=== PATIENT | female | born 2000 | race Hispanic/Latino ===

== ENCOUNTER 2021-05-13 18:19 | Inpatient (IN) | payer OTHER ==
[2021-05-13] VITALS (19 sets, daily range): BP systolic 106–148; BP diastolic 63–95
[~2021-05-13] VITALS: Ht 154.9 cm; Wt 66.6 kg
[2021-05-13] MEDS ORDERED: IRON240T PO (18:43)
[2021-05-13] MEDS ORDERED: PRENTAB9 PO (18:45)
[2021-05-13] MEDS ORDERED: HOME MED LIST COMPLETE! XX SCH (18:45)
[2021-05-13] MEDS ORDERED: TUMS500C PO (18:45)
[2021-05-13] MEDS ORDERED: PENICILLIN G POTASSIUM IV 5 MU in D5W MINI-BAG PLUS 100 ML IV STA (20:04)
[2021-05-13] MEDS ORDERED: METHYLERGONOVINE MALEATE 0.2 MG/ML VIAL (J2210) IM PRN (20:05)
[2021-05-13] MEDS ORDERED: LIDOCAINE 1% MDV 20ML VIAL INFIL PRN (20:05)
[2021-05-13] MEDS ORDERED: TRANEXAMIC ACID INJection 1,000 MG in NS 100 ML IV PRN (20:05)
[2021-05-13] MEDS ORDERED: OXYTOCIN DRIP 30 UNITS in IV 1 EA IV PRN ×4 (20:05)
[2021-05-13] MEDS ORDERED: CARBOPROST TROMETHAMINE 250 MCG/ML AMP IM PRN (20:05)
[2021-05-13 20:47] LABS: HEMATOCRIT 36.7 % (36.0-47.0); HEMOGLOBIN 12.2 g/dl (12.0-15.5); MEAN CORPUSCULAR HEMOGLOBIN 27.7 pg (27.0-33.0); MEAN CORPUSCULAR HGB CONC 33.2 g/dl (32.0-36.5); MEAN CORPUSCULAR VOLUME 83.2 fl (80.0-96.0); PLATELET COUNT, AUTOMATED 278 10^3/uL (150-450); RED BLOOD COUNT 4.41 10^6/uL (4.00-5.40); WHITE BLOOD COUNT 10.1 10^3/uL (4.0-10.0)
[2021-05-13] MEDS ORDERED: ONDANSETRON 4MG/2ML VIAL IV PRN ×2 (20:55→22:50)
[2021-05-13] MEDS: LR 1,000 ML IV SCH ×2 (20:56→23:20)
[2021-05-13] MEDS ORDERED: CALCIUM CARBONATE 500 MG CHEW U/D PO PRN (22:40)
[2021-05-13] MEDS ORDERED: FENTANYL 2MCG/ML ROPIVACAINE 0.2% IN 0.9% NACL 100ML IVBAG As Ordered ONE (22:48)
[2021-05-13] MEDS ORDERED: diphenhydrAMINE 50MG/ML VIAL (J1200) IV PRN (22:50)
[2021-05-13] MEDS ORDERED: LACTATED RINGER'S 1000 ML IV PRN (22:50)
[2021-05-13] MEDS ORDERED: FENTANYL/ROPIVACAINE/NACL BAG 100 ML EPIDURAL SCH (22:50)
[2021-05-13] MEDS ORDERED: EPIDURAL COMMENT XX SCH (22:50)
[2021-05-13] MEDS ORDERED: NALOXONE INJ 0.4MG/1ML VIAL (J2310 PER 1MG) IV PRN (22:50)
[2021-05-13] MEDS ORDERED: EPIDURAL/PCA KEYS XX PRN (22:50)
[2021-05-13] MEDS ORDERED: ePHEDrine SULFATE 25 MG/5 ML(5MG/ML) SYRINGE IV PRN (22:50)
[2021-05-13] MEDS ORDERED: REFRIGERATOR IV KEYS XX PRN (22:50)
[2021-05-14] VITALS (24 sets, daily range): BP systolic 94–139; BP diastolic 50–79
[2021-05-14] MEDS: PENICILLIN G POTASSIUM IV 2.5 MU in IV 1 EA IV SCH ×2 (01:44→05:14)
[2021-05-14] MEDS: LR 1,000 ML IV SCH (04:00)
[2021-05-14] MEDS ORDERED: IBUPROFEN 600MG TAB PO PRN (06:30)
[2021-05-14] MEDS ORDERED: ACETAMINOPHEN TAB 650MG DOSE (2X325MG) PO PRN (06:30)
[2021-05-14] MEDS ORDERED: DIBUCAINE 1% OINTMENT 30GM TOP PRN (06:30)
[2021-05-14] MEDS ORDERED: MEASLES,MUMPS,RUBELLA VACCINE INJ (MMR-II) (90707) SC SCH (06:30)
[2021-05-14] MEDS ORDERED: METHYLERGONOVINE MALEATE 0.2 MG TAB PO PRN (06:30)
[2021-05-14] MEDS ORDERED: RHOGAM 300 MCG (1500 IU) INJ (J2790) IM SCH (06:30)
[2021-05-14] MEDS ORDERED: DOCUSATE SODIUM 100MG CAPSULE PO PRN (06:30)
[2021-05-14] MEDS ORDERED: PRENATAL VITAMINS CHEWABLE TABLET PO SCH (09:00)
[2021-05-14] MEDS: PRENATAL VITAMINS CHEWABLE TABLET PO SCH (10:31)
[2021-05-14] MEDS: ACETAMINOPHEN 500 MG TAB PO PRN ×2 (10:32→21:22)
[2021-05-14] MEDS: IBUPROFEN 800 MG TAB PO PRN (17:05)
[2021-05-15] MEDS: IBUPROFEN 800 MG TAB PO PRN (01:00)
[2021-05-15 05:54] VITALS: BP 127/58
[2021-05-15] MEDS: PRENATAL VITAMINS CHEWABLE TABLET PO SCH (08:37)
[2021-05-15] MEDS ORDERED: ACET-683 PO (09:00)
[2021-05-15] MEDS ORDERED: IBUP80TA PO (09:00)
== END 2021-05-15 14:30 | disposition home or self-care (01) | DRG 807 ==
LOC: M LDO 18:19 → M LDI 20:13 → M OBS 05-14 08:23
PROVIDERS: ADMIT Obstetrics & Gynecology; ATTEND Obstetrics & Gynecology
PROC: 10E0XZZ Delivery of Products of Conception, External Approach (ICD-10-PCS; principal; 2021-05-14)
PROC: 0KQM0ZZ Repair Perineum Muscle, Open Approach (ICD-10-PCS; 2021-05-14)
DX: O24.420 Gestational diabetes mellitus in childbirth, diet controlled (principal); Z37.0 Single live birth; Z3A.38 38 weeks gestation of pregnancy; O70.1 Second degree perineal laceration during delivery

== ENCOUNTER 2022-04-22 23:32 | Emergency (ER) | payer OTHER ==
[~2022-04-22] VITALS: Ht 154.9 cm; Wt 61.6 kg
[~2022-04-22 23:32] MED LIST: ACET-683 PO; IBUP80TA PO; IRON240T PO; PRENTAB9 PO; TUMS500C PO
[2022-04-22] MEDS ORDERED: SERT25TA21 PO (23:44)
[2022-04-22] MEDS ORDERED: [UNRECOGNIZED DRUG - CODE] PO (23:44)
[2022-04-23] MEDS ORDERED: NS 1,000 ML IV ONE (02:05)
[2022-04-23] MEDS ORDERED: GI COCKTAIL 50ML BTL(HYOSCYAMINE/MAALOX/LIDOCAINE VISCOUS)(1:3:1) PO ONE (02:05)
[2022-04-23] MEDS ORDERED: ONDANSETRON 4MG 2ML VIAL IV ONE (02:05)
[2022-04-23 02:14] LABS: BASO % 0.1 % (0.0-1.0); EOS % 0.1 % (0.0-3.0); HEMATOCRIT 41.1 % (36.0-47.0); HEMOGLOBIN 13.6 g/dl (12.0-15.5); LYMPH # 0.3 10^3/uL (1.5-5.0); LYMPH % 3.1 % (24.0-44.0); MEAN CORPUSCULAR HEMOGLOBIN 28.2 pg (27.0-33.0); MEAN CORPUSCULAR HGB CONC 33.1 g/dl (32.0-36.5); MEAN CORPUSCULAR VOLUME 85.3 fl (80.0-96.0); MONO # 0.3 10^3/uL (0.0-0.8); MONO % 3.3 % (2.0-8.0); NEUTROPHILS # 9.5 10^3/uL (1.5-8.5); NEUTROPHILS % 92.9 % (36.0-66.0); PLATELET COUNT, AUTOMATED 368 10^3/uL (150-450); RED BLOOD COUNT 4.82 10^6/uL (4.00-5.40); WHITE BLOOD COUNT 10.3 10^3/uL (4.0-10.0)
[2022-04-23 02:57] LABS: LIPASE 36 U/L (12-53)
[2022-04-23 02:59] LABS: ALBUMIN 3.9 G/DL (3.2-5.2); ALKALINE PHOSPHATASE 120 U/L (46-116); ALT/SGPT 13 U/L (7.0-40); AST/SGOT 18 U/L (<34); BILIRUBIN,DIRECT 0.3 MG/DL (<0.4); BILIRUBIN,TOTAL 0.9 MG/DL (0.3-1.2); TOTAL PROTEIN 7.2 G/DL (5.7-8.2)
[2022-04-23 03:27] LABS: HCG, SERUM QUANTITATIVE < 2.6 MIU/ML (<4.2)
[2022-04-23] MEDS ORDERED: ISOVUE-370 76% 100ML VIAL As Ordered ONE (03:41)
[2022-04-23 06:00] VITALS: BP 128/67
[2022-04-23] MEDS ORDERED: ONDA4TAB6 PO (06:09)
== END 2022-04-23 06:31 | disposition home or self-care (01) ==
LOC: EDBD 23:32 → M ED 23:32
DX: K52.9 Noninfective gastroenteritis and colitis, unspecified (principal); N83.291 Other ovarian cyst, right side; Z79.83 Long term (current) use of bisphosphonates; Z79.899 Other long term (current) drug therapy
CPT/HCPCS: 71260; 74177; 80047; 80076; 83690; 84702; 85025; 93041; 96361; 96374; 99285; J2405

== ENCOUNTER → 2022-06-18 | Outpatient (REF) ==
[~2022-06-18] MED LIST changes: +ONDA4TAB6 PO; +SERT25TA21 PO; +[UNRECOGNIZED DRUG - CODE] PO
[2022-06-18 10:58] LABS: RSV AMPLIFICATION NEGATIVE (NEGATIVE)
== END ==
LOC: M LABSMTC 09:08
PROVIDERS: ATTEND Family Medicine
DX: Z11.59 Encounter for screening for other viral diseases (principal)

== ENCOUNTER → 2022-11-02 | Outpatient (REF) | LOC: M EMP 11:33 | PROVIDERS: ATTEND Family Medicine | DX: Z11.52 Encounter for screening for COVID-19 (principal) ==

== ENCOUNTER → 2023-07-12 | Outpatient (CLI) | payer OTHER | LOC: M PLAIMG 11:17 | PROVIDERS: ATTEND Otolaryngology | DX: J32.0 Chronic maxillary sinusitis (principal) ==

== ENCOUNTER → 2025-01-19 | Outpatient (REF) | payer OTHER ==
[~2025-01-19] MED LIST changes: +ONDA-282 PO; -ONDA4TAB6 PO
== END ==
LOC: M LAB REF 11:57
PROVIDERS: ATTEND Physician Assistant Medical
DX: J03.90 Acute tonsillitis, unspecified (principal)